=== PATIENT | male | born 1965 | race Caucasian/White ===

== ENCOUNTER 2018-12-12 15:14 | Emergency (ER) | payer BC, OTHER ==
[~2018-12-12] VITALS: Ht 182.9 cm; Wt 98.3 kg
--- NOTE | 2018-12-12 15:15 | NUR ---
PT ARRIVED TO ROOM 19 AMBULATORY. PT REPORTS LOWER BACK PAIN AROUND HIS RIGHT KIDNEY AREA. PT REPORTS THAT HE HAS NOTICED HIS URINE IS VERY DARK. PT REPORTS ATTEMPTED TO USE HOME REMEDIES ON BACK PAIN AND NO RELIEF. CONCERNED IT MAY BE HIS KIDNEYS. PT AAO X 4, VSS, DRESSED IN GOWN AND ATTACHED TO MONITOR, RESTING COMFORTABLY ON GURNEY WITH CALL LIGHT AND BELONGINGS IN REACH.
--- NOTE | 2018-12-12 15:55 | NUR ---
PIV ESTABLISHED, PT EDUCATED ON POC FOR CT SCAN
[2018-12-12] MEDS ORDERED: ALLO300T PO (16:00)
[2018-12-12] MEDS ORDERED: ACETAMINOPHEN 500 MG TABLET PO ONE (16:00)
[2018-12-12] MEDS ORDERED: LISI1TAB7 PO (16:00)
[2018-12-12] MEDS ORDERED: ZOLP5TAB6 PO (16:00)
[2018-12-12 16:01] LABS: BASOPHILS # (AUTO) 0.04 x10^3/uL (0-0.1); BASOPHILS % (AUTO) 0 % (0-1); EOSINOPHILS # (AUTO) 0.18 x10^3/uL (0-0.4); EOSINOPHILS % (AUTO) 2 % (1-7); LYMPHOCYTES # (AUTO) 2.93 x10^3/uL (1-3.4); LYMPHOCYTES % (AUTO) 31 % (22-44); MD NO; MEAN CORPUSCULAR HGB CONC 33.4 g/dL (33.2-36.2); MEAN CORPUSCULAR VOLUME 92.7 fL (81-97); MONOCYTES # (AUTO) 0.94 x10^3/uL (0.2-0.8); MONOCYTES % (AUTO) 10 % (2-9); NEUTROPHILS # (AUTO) 5.53 x10^3/uL (1.8-6.8); NEUTROPHILS % (AUTO) 57 % (42-75); PLATELET COUNT 258 x10^3/uL (130-400); RED BLOOD COUNT 4.33 x10^6/uL (4.38-5.82); RED CELL DISTRIBUTION WIDTH 14.5 % (9.4-14.8)
[2018-12-12] MEDS ORDERED: BUPR150T73 PO (16:01)
[2018-12-12] MEDS ORDERED: OMEP-110 PO (16:01)
[2018-12-12] MEDS ORDERED: TAMS-11 PO (16:01)
[2018-12-12 16:12] LABS: ALBUMIN 3.6 g/dL (3.4-5.0); ANION GAP 9 mmol/L (5-15); CALCIUM 8.1 mg/dL (8.5-10.1); CHLORIDE 109 mmol/L (98-107); CREATININE 0.99 mg/dL (0.7-1.3)
[2018-12-12 16:14] LABS: MICROSCOPIC NOT IND
[2018-12-12 16:16] LABS: CULTURE INDICATED? NO
[2018-12-12 17:03] VITALS: BP 135/81
--- NOTE | 2018-12-12 17:04 | NUR ---
PT RESTING COMFORTABLY IN [facility], ALL NEEDS MET.
[2018-12-12] MEDS ORDERED: LIDODERM 5% PATCH TD ONE (17:30)
[2018-12-12] MEDS ORDERED: ACETAMINOPHEN 500 MG TABLET ONE (17:47)
--- NOTE | 2018-12-12 17:52 | NUR ---
Patient/Caregiver given discharge instructions and they have confirmed that they understand the instructions. Patient ambulatory with steady gait.
== END 2018-12-12 17:53 | disposition home or self-care (01) ==
LOC: ED 16:18
DX: K57.30 Diverticulosis of large intestine without perforation or abscess without bleeding (principal); M54.5 Low back pain; I10 Essential (primary) hypertension
CPT/HCPCS: 36415; 74177; 80048; 81003; 82040; 85025; 99284